=== PATIENT | male | born 1955 | race Caucasian/White ===

== ENCOUNTER → 2019-03-08 | Outpatient (CLI) | payer MEDICARE | END | disposition home or self-care (01) | LOC: LAB 18:39 → LAB SHORT 18:39 | DX: Z00.00 Encounter for general adult medical examination without abnormal findings (principal); D51.8 Other vitamin B12 deficiency anemias | CPT/HCPCS: 82607; 82746 ==

== ENCOUNTER → 2019-04-07 | Outpatient (CLI) | payer MEDICARE ==
[2019-04-09 07:06] LABS: HBSAG SCREEN Negative (Negative); HEP B CORE AB, TOT Negative (Negative); HEP C VIRUS AB <0.1 (0.0-0.9)
== END | disposition home or self-care (01) ==
LOC: LAB 16:16 → LAB SHORT 16:16
PROVIDERS: Internal Medicine Hematology & Oncology
DX: Z00.00 Encounter for general adult medical examination without abnormal findings (principal)
CPT/HCPCS: 86704; 86708; 86803; 87340

== ENCOUNTER 2020-04-29 00:22 | Emergency (ER) | payer MEDICARE ==
[~2020-04-29] VITALS: Ht 190.5 cm; Wt 140.6 kg
[2020-04-29] MEDS ORDERED: WARF10 PO (00:49)
[2020-04-29] MEDS ORDERED: WARF7.5 PO (00:49)
[2020-04-29] MEDS ORDERED: FURO20 (00:50)
[2020-04-29] MEDS ORDERED: LOSA25 (00:50)
[2020-04-29] MEDS ORDERED: SPIR25 (00:50)
[2020-04-29] MEDS ORDERED: METO100ER PO (00:50)
[2020-04-29] MEDS ORDERED: MELO7.5 (00:51)
[2020-04-29] MEDS ORDERED: Cymbalta20 MG (00:51)
[2020-04-29] MEDS ORDERED: ALBU90OI INH (00:52)
== END 2020-04-29 01:58 | disposition home or self-care (01) ==
LOC: ER 00:22
DX: K92.1 Melena (principal); K59.00 Constipation, unspecified; Z88.8 Allergy status to other drugs, medicaments and biological substances; Z79.01 Long term (current) use of anticoagulants; Z79.899 Other long term (current) drug therapy; I48.91 Unspecified atrial fibrillation; J44.9 Chronic obstructive pulmonary disease, unspecified; I11.0 Hypertensive heart disease with heart failure; I50.9 Heart failure, unspecified
CPT/HCPCS: 36415; 99283

== ENCOUNTER 2021-08-19 06:06 | Day surgery (SDC) | payer MEDICARE ==
[~2021-08-19] VITALS: Ht 190.5 cm; Wt 127.4 kg
[~2021-08-19 06:06] MED LIST: ALBU90OI INH; BREO ELLIPTA 11 EAC1 INH; Cymbalta20 MG PO; FURO20 PO; LOSA25 PO; MELO7.5; METO100ER PO; SPIR25 PO; TRAZ50 PO; WARF10 PO; WARF7.5 PO
--- NOTE | 2021-08-19 06:32 | NUR ---
History, Chart, Medications and Allergies reviewed before start of procedure. Patient confirms NPO status and agrees with scheduled surgery. Patient States Post-Procedure ride home has been arranged with his .
--- NOTE | 2021-08-19 08:33 | NUR ---
08/19/21 0833 Tita Doyle SKIN ASSESSMENT: NOTED HEALING SCRATCHES LEFT GROIN. Sherie DOYLE RN
--- NOTE | 2021-08-19 11:23 | NUR ---
DISCHARGE SUMMARY PT A&OX4, VSS, NONI PO, DENIES N&V, PAIN TREATED WITH 5 MG NORCO, RATED 2/10 DOWN TO 1/10, LEFT VIA WC WITH DC VOLUNTEER, WITH ALL PERSONAL POSSESSIONS INCLUDING DC INSTRUCTIONS AND 1 NARC SCRIPT. PT UNDERSTANDS TO RESTART COUMADIN WEDNESDAY, NO LIFTING/PUSHING/PULLING >10 LBS, OKAY TO SHOWER TOMORROW - 24 HOURS AFTER SG, AND TO CONFIRM FU APPT. IV DC'D.
== END 2021-08-19 11:20 | disposition home or self-care (01) ==
LOC: ORSCMMR 06:06 → ORD 07:30 → ORSCMMR 11:20
PROVIDERS: Surgery
PROC: 8E0W4CZ Robotic Assisted Procedure of Trunk Region, Percutaneous Endoscopic Approach (ICD-10-PCS; principal; 2021-08-19 07:30)
PROC: 0YU54JZ Supplement Right Inguinal Region with Synthetic Substitute, Percutaneous Endoscopic Approach (ICD-10-PCS; principal; 2021-08-19 07:30)
DX: K40.91 Unilateral inguinal hernia, without obstruction or gangrene, recurrent (principal); I10 Essential (primary) hypertension; I48.91 Unspecified atrial fibrillation; Z95.0 Presence of cardiac pacemaker; Z79.01 Long term (current) use of anticoagulants; Z79.899 Other long term (current) drug therapy; E66.9 Obesity, unspecified; Z68.35 Body mass index [BMI] 35.0-35.9, adult
CPT/HCPCS: 49651; S2900; A9270; C1781; J0171; J0690; J1100; J2250; J2370; J2405; J2704; J3010; J7120